=== PATIENT | female | born 1960 | race Caucasian/White ===

== ENCOUNTER 2019-09-25 17:53 | Emergency (ER) | payer SELFPAY ==
[~2019-09-25] VITALS: Ht 162.6 cm; Wt 72.6 kg
[2019-09-25 18:08] VITALS: BP 145/89
[2019-09-25] MEDS ORDERED: KETOROLAC 60 MG/2 ML VIAL IM ONE (19:10)
[2019-09-25 19:41] VITALS: BP 127/84
== END 2019-09-25 19:42 | disposition home or self-care (01) ==
LOC: MED 17:53
DX: N39.0 Urinary tract infection, site not specified (principal); I10 Essential (primary) hypertension; Z90.49 Acquired absence of other specified parts of digestive tract
CPT/HCPCS: 81002; 96372; 99283; J1885